=== PATIENT | female | born 1995 ===

== ENCOUNTER 2021-01-27 15:54 | Inpatient (IN) ==
[2021-01-27] MEDS ORDERED: DEXTROSE 50% 25 GM/50 ML SYRINGE IV PRN (16:57)
[2021-01-27] MEDS ORDERED: GLUCAGON 1 MG VIAL IM PRN (16:57)
[2021-01-27] MEDS: INSULIN REGULAR 100 UNIT/ML SUBCUT SCH (18:37)
[2021-01-27 19:34] LABS: Basophils % 0.2 % (0.0-0.8); Eosinophils # 0.1 10*3/uL (0.0-0.87); Eosinophils % 1.5 % (0.00-10.9); Hematocrit 36.7 VOL% (35.7-47.0); Hemoglobin 12.1 GM/DL (12.0-16.0); Immature Granulocytes % 0.5 %; Immature Granulocytes Absolute 0.05 #; Lymphocytes # 1.7 10*3/uL (1.4-4.0); Lymphocytes % 18.2 % (21.3-54.2); Mean Corpuscular Volume 78.8 FL (87-102); Monocytes % 6.1 % (1.7-12.7); Neutrophils % 73.5 % (38.7-73.9); Platelet Count 206 T/CUMM (130-400); Red Blood Count 4.66 MC/CUMM (3.8-5.5); Red Cell Distribution Width 14.3 % (9.3-17.3); White Blood Count 9.4 T/CUMM (4-12)
[2021-01-27 19:56] LABS: Albumin 2.1 G/DL (3.4-5.0); Bilirubin,Total 0.5 MG/DL (0.20-1.00); Calcium 8.4 MG/DL (8.5-10.1); Osmolality,Calculated 278.8 MOS/KG (273-304); Potassium 3.8 MMOL/L (3.5-5.1); Total Protein 6.9 G/DL (6.4-8.2)
[2021-01-27] MEDS ORDERED: INFLUENZA VIRUS VACCINE 0.5 ML SYRINGE IM ONE ×2 (19:56→20:00)
[2021-01-27 20:21] LABS: Rubella Antibody IgG Result Non-Reactive (NonReactive)
[2021-01-27 20:37] LABS: HIV Antigen/Antibody Result Nonreactive (Nonreactive); Hepatitis B Surface Ag Quant < 0.10 Index; Hepatitis B Surface Ag Result Non-Reactive (NonReactive)
[2021-01-27] MEDS ORDERED: INSULIN GLARGINE 100 UNIT/ML SUBCUT SCH (21:00)
[2021-01-27] MEDS: LABETALOL 100 MG TABLET PO SCH (21:11)
[2021-01-28] MEDS ORDERED: BUTORPHANOL 2 MG/ML VIAL IV PRN (00:01)
[2021-01-28] MEDS ORDERED: MEPERIDINE 50 MG/1 ML VIAL IV PRN (00:01)
[2021-01-28] MEDS ORDERED: OXYTOCIN/LR 30 UNIT/1,000 ML BAG IV PRN (00:11)
[2021-01-28] MEDS ORDERED: AMPICILLIN INJ 2,000 MG in SODIUM CHLORIDE 0.9% 100 ML IV ONE (02:00)
[2021-01-28] MEDS ORDERED: OXYTOCIN/LR 20 UNIT/1,000 ML BAG IV SCH (02:00)
[2021-01-28] MEDS: LACTATED RINGERS 1,000 ML IV PRN ×3 (02:17→10:33)
[2021-01-28] MEDS: ONDANSETRON 4 MG/2 ML VIAL IV PRN ×2 (03:02→21:48)
[2021-01-28] MEDS: INSULIN REGULAR 100 UNIT/ML SUBCUT SCH ×3 (04:00→13:54)
[2021-01-28] MEDS ORDERED: PROMETHAZINE 25 MG/1 ML VIAL IM PRN (04:14)
[2021-01-28] MEDS ORDERED: hydrOXYzine HCL 25 MG/1 ML VIAL IM PRN (04:14)
[2021-01-28] MEDS ORDERED: ePHEDrine 50 MG/ML VIAL IV PRN (04:14)
[2021-01-28] MEDS ORDERED: diphenhydrAMINE 50 MG/1 ML VIAL IV PRN ×2 (04:14)
[2021-01-28] MEDS ORDERED: NALOXONE 0.4 MG/ML VIAL IV PRN (04:14)
[2021-01-28] MEDS ORDERED: FAMOTIDINE 20 MG/2 ML VIAL IV PRN (04:16)
[2021-01-28] MEDS ORDERED: CITRIC ACID/SODIUM CITRATE 30 ML UDCUP PO PRN (04:16)
[2021-01-28] MEDS: AMPICILLIN INJ 1,000 MG in SODIUM CHLORIDE 0.9% 100 ML IV SCH ×3 (06:35→14:01)
[2021-01-28] MEDS: fentaNYL 2 MCG/ROPIV 0.2% EPID 100 ML EPIDURAL PRN ×2 (09:06→17:13)
[2021-01-28 10:01] LABS: Bacteria,Urine Occasional /HPF (Few); Bilirubin,Urine Negative (Negative); Blood, Urine Negative (Negative); Glucose,Urine (UA) Negative (Negative); Ketones,Urine Negative (Negative); Nitrite,Urine Negative (Negative); Protein,Urine Negative; Squamous Epithelial Cell,Urine Occasional /HPF (0-10); Urine Appearance CLEAR (Clear); Urine Color Yellow (Yellow); Urine Specific Gravity 1.005 (1.001-1.035); Urine Urobilinogen < 2.0 EU/DL (<2.0)
[2021-01-28] MEDS: LABETALOL 100 MG TABLET PO SCH (10:34)
[2021-01-28] MEDS ORDERED: miSOPROStoL 200 MCG TABLET ONE ×2 (17:26→18:51)
[2021-01-28] MEDS ORDERED: TRANEXAMIC ACID 1,000 MG/10 ML VIAL ONE ×2 (17:26→18:51)
[2021-01-28] MEDS ORDERED: SODIUM CHLORIDE 0.9% 0 ML IV ONE (17:27)
[2021-01-28] MEDS ORDERED: CARBOPROST TROMETHAMINE 250 MCG/ML AMP IM ONE ×2 (17:27→18:52)
[2021-01-28] MEDS ORDERED: METHYLERGONOVINE 0.2 MG/1 ML AMP ONE ×2 (17:27→18:52)
[2021-01-28] MEDS ORDERED: ceFAZolin 2,000 MG/50 ML DUPLEX IV ONE (18:43)
[2021-01-28] MEDS ORDERED: OXYTOCIN 10 UNIT/ML VIAL IM ONE (18:46)
[2021-01-28] MEDS ORDERED: SODIUM CHLORIDE 0.9% 100 ML IV ONE (18:51)
[2021-01-28] MEDS ORDERED: OXYTOCIN/LR 20 UNIT/1,000 ML BAG IV ONE ×2 (18:52→20:16)
[2021-01-28] MEDS ORDERED: LIDOCAINE MPF 2% /EPI 20 ML VIAL ONE (18:56)
[2021-01-28] MEDS ORDERED: ONDANSETRON 4 MG/2 ML VIAL ONE (18:57)
[2021-01-28] MEDS ORDERED: ACETAMINOPHEN INJ 1,000 MG/100 ML VIAL IV ONE (19:17)
[2021-01-28] MEDS ORDERED: KETOROLAC 30 MG/1 ML VIAL ONE (19:17)
[2021-01-28] MEDS ORDERED: DEXAMETHASONE 4 MG/1 ML VIAL ONE (19:17)
[2021-01-28] MEDS ORDERED: LACTATED RINGERS 1,000 ML IV ONE (19:34)
[2021-01-28 19:49] LABS: Cord Arterial Blood HCO3 20.7 MMOL/L
[2021-01-28 19:55] LABS: Cord Venous Blood HCO3 22.1 MMOL/L; Cord Venous Blood PCO2 49.4 MMHG
[2021-01-28] MEDS ORDERED: GLUCAGON 1 MG VIAL IM PRN (20:16)
[2021-01-28] MEDS ORDERED: RHO(D) IMMUNE GLOBULIN 300 MCG SYRINGE IM ONE (20:16)
[2021-01-28] MEDS ORDERED: IBUPROFEN 800 MG TABLET PO PRN (20:16)
[2021-01-28] MEDS ORDERED: ONDANSETRON 4 MG/2 ML VIAL IV PRN (20:16)
[2021-01-28] MEDS ORDERED: ACETAMINOPHEN 325 MG TABLET PO PRN (20:16)
[2021-01-28] MEDS ORDERED: SIMETHICONE CHEW 80 MG TABLET PO PRN (20:16)
[2021-01-28] MEDS ORDERED: DEXTROSE 50% 25 GM/50 ML SYRINGE IV PRN (20:26)
[2021-01-28] MEDS ORDERED: LACTATED RINGERS 1,000 ML IV SCH (20:30)
[2021-01-28] MEDS ORDERED: ACETAMINOPHEN 500 MG TABLET PO PRN (23:28)
[2021-01-29] MEDS: KETOROLAC 30 MG/1 ML VIAL IV SCH ×3 (00:59→13:49)
[2021-01-29] MEDS ORDERED: ACETAMINOPHEN 325 MG TABLET PO PRN (01:00)
[2021-01-29] MEDS: INSULIN REGULAR 100 UNIT/ML SUBCUT SCH ×5 (04:27→21:42)
[2021-01-29 06:03] LABS: Basophils % 0.1 % (0.0-0.8); Eosinophils % 0.1 % (0.00-10.9); Hematocrit 26.9 VOL% (35.7-47.0); Immature Granulocytes % 0.4 %; Immature Granulocytes Absolute 0.06 #; Lymphocytes # 1.9 10*3/uL (1.4-4.0); Lymphocytes % 12.8 % (21.3-54.2); Mean Corpuscular Volume 80.5 FL (87-102); Mean Platelet Volume 12.2 FL (9.6-12.0); Monocytes % 5.7 % (1.7-12.7); Neutrophils % 80.9 % (38.7-73.9); Platelet Count 189 T/CUMM (130-400); Red Cell Distribution Width 14.3 % (9.3-17.3)
[2021-01-29 06:14] LABS: Hemoglobin 8.6 GM/DL (12.0-16.0); Red Blood Count 3.34 MC/CUMM (3.8-5.5); White Blood Count 14.8 T/CUMM (4-12)
[2021-01-29 06:29] LABS: Hypochromasia 1+; Lymphocytes 6 % (20-55); Microcytosis 1+; Platelet Estimate Adequate; Segmented Neutrophils 92 % (50-85); Total Cells Counted 100
[2021-01-29] MEDS: METOCLOPRAMIDE 10 MG TABLET PO SCH ×3 (08:22→23:54)
[2021-01-29] MEDS: FERROUS SULFATE 325 MG TABLET PO SCH ×2 (08:22→21:32)
[2021-01-29] MEDS: DOCUSATE SODIUM 100 MG CAPSULE PO SCH ×2 (08:22→21:32)
[2021-01-29] MEDS: MULTIVITAMIN (PRENATAL) TABLET PO SCH (08:22)
[2021-01-29] MEDS: MAGNESIUM HYDROXIDE SUSP 30 ML UDCUP PO PRN ×2 (08:23→21:32)
[2021-01-30 09:42] VITALS: BP 122/77
[2021-01-30] MEDS: INSULIN REGULAR 100 UNIT/ML SUBCUT SCH ×2 (09:42→12:25)
[2021-01-30] MEDS: FERROUS SULFATE 325 MG TABLET PO SCH (10:27)
[2021-01-30] MEDS: DOCUSATE SODIUM 100 MG CAPSULE PO SCH (10:27)
[2021-01-30] MEDS: MULTIVITAMIN (PRENATAL) TABLET PO SCH (10:27)
[2021-01-30] MEDS: METOCLOPRAMIDE 10 MG TABLET PO SCH (10:27)
[2021-01-30] MEDS ORDERED: MEASLES/MUMPS/RUBELLA VACCINE 0.5 ML VIAL SUBCUT ONE (12:34)
== END 2021-01-30 14:55 | disposition home or self-care (01) | DRG 788 ==
LOC: INTOOBSV 15:54 → N.LD 15:54 → N.OB 01-28 23:45
PROVIDERS: ADMIT Obstetrics & Gynecology; ATTEND Obstetrics & Gynecology
PROC: LDCSECT (ICD-10-PCS; 2021-01-28 19:00)